=== PATIENT | male | born 1955 | race Caucasian/White ===

== ENCOUNTER → 2019-01-12 | Outpatient (CLI) | payer MEDICARE ==
[2019-01-12 14:57] LABS: CHOLESTEROL 144 MG/DL (< 200); HDL CHOLESTEROL 26 MG/DL (40-60); TRIGLYCERIDES 412 MG/DL (<150)
== END ==
LOC: LAB FS 08:17
PROVIDERS: ATTEND Internal Medicine Cardiovascular Disease
DX: E78.5 Hyperlipidemia, unspecified (principal); Z88.5 Allergy status to narcotic agent
CPT/HCPCS: 36415; 80061